=== PATIENT | female | born 1975 | race Caucasian/White ===

== ENCOUNTER → 2018-10-27 17:29 | Emergency (ER) | payer BC ==
[~2018-10-27 17:29] MED LIST: Naproxen TAB* 250 MG PO ONE
--- NOTE | 2018-10-27 19:09 | ED ---
Lower Extremity - HPI Summary HPI Summary: 43-year-old female presents with complaints of left knee pain. States this morning she was walking her dog and slipped in some wet grass falling to the ground. She is uncertain of the exact mechanism of injury. States she was able to walk and bear weight on the knee immediately after the injury however the pain has progressively worsened throughout the day. Denies any numbness or tingling. - History of Current Complaint Chief Complaint: EDExtremityLower Stated Complaint: "TWISTED LEFT KNEE" PER PT Time Seen by Provider: 10/27/18 18:15 Hx Obtained From: Patient Pain Intensity: 5 - Allergies/Home Medications Allergies/Adverse Reactions: Allergies Allergy/AdvReac Type Severity Reaction Status Date / Time No Known Allergies Allergy Verified 10/27/18 17:47 Home Medications: Home Medications NK [No Home Medications Reported] 10/27/18 [History Confirmed 10/27/18] PMH/Surg Hx/FS Hx/Imm Hx Previously Healthy: Yes - Denies significant PMH - Surgical History Surgical History: None Infectious Disease History: No Infectious Disease History: Denies: Traveled Outside the [place] in Last 30 Days - Family History Known Family History: Positive: Non-Contributory - Social History Occupation: Employed Full-time Lives: Alone Alcohol Use: Occasionally Substance Use Type: Reports: None Smoking Status (MU): Current Some Day Smoker Review of Systems Constitutional: Negative Cardiovascular: Negative Respiratory: Negative Gastrointestinal: Negative Genitourinary: Negative Musculoskeletal: Other - See HPI Skin: Negative Neurological: Negative All Other Systems Reviewed And Are Negative: Yes Physical Exam - Summary Physical Exam Summary: GENERAL APPEARANCE: Well developed, well nourished, alert and cooperative, and appears to be in no acute distress. CARDIAC: Normal S1 and S2. No S3, S4 or murmurs. Rhythm is regular. There is no peripheral edema, cyanosis or pallor. Extremities are warm and well perfused. Capillary refill is less than 2 seconds. Peripheral pulses intact. LUNGS: Clear to auscultation without rales, rhonchi, wheezing or diminished breath sounds. ABDOMEN: Positive bowel sounds. Soft, nondistended, nontender. No guarding or rebound. No masses or hepatosplenomegally. MUSKULOSKELETAL: Normal muscular development. Limping gait. EXTREMITIES: Tenderness to the medial aspect of the left knee without ecchymosis , edema, or laxity of the joint. Circulation and sensation intact. SKIN: Skin normal color, texture and turgor with no lesions or eruptions. Triage Information Reviewed: Yes Vital Signs On Initial Exam: Initial Vitals Temp Pulse Resp BP Pulse Ox 99.9 F 94 16 186/104 98 10/27/18 17:45 10/27/18 17:45 10/27/18 17:45 10/27/18 17:45 10/27/18 17:45 Vital Signs Reviewed: Yes Diagnostics - Vital Signs Vital Signs Temp Pulse Resp BP Pulse Ox 10/27/18 17:45 99.9 F 94 16 186/104 98 - Laboratory Lab Statement: Any lab studies that have been ordered have been reviewed, and results considered in the medical decision making process. - Radiology No standard instances Radiology Interpretation Completed By: ED Physician - Negative for fracture or dislocation Lower Extremity Course/Dx - Course Course Of Treatment: 43-year-old female presents with complaints of left knee pain. States this morning she was walking her dog and slipped in some wet grass falling to the ground. She is uncertain of the exact mechanism of injury. States she was able to walk and bear weight on the knee immediately after the injury however the pain has progressively worsened throughout the day. Denies any numbness or tingling. Afebrile. Vital signs stable. Patient had tenderness to the medial aspect of the left knee without ecchymosis, edema, or laxity of the joint. Circulation and sensation intact. X-ray of the knee was negative. Reviewed results with the patient. We will treat her for a left knee sprain. She was placed in a knee immobilizer by the RN. Circulation sensation were intact pre-and post-application. She was provided crutches for progressive weightbearing. Recommending [id number] analgesics and RACE. She is to follow-up orthopedic surgery in 5-7 days for reevaluation. Anticipatory guidance and warning symptoms were reviewed with the patient. Verbalizes understanding and agrees with plan of care. - Diagnoses Differential Diagnosis/HQI/PQRI: Positive: Contusion, Dislocation, Fracture ( Closed), Sprain Provider Diagnoses: Left knee pain Discharge - Sign-Out/Discharge Documenting (check all that apply): Patient Departure Patient Received Moderate/Deep Sedation with Procedure: No - Discharge Plan Condition: Stable Disposition: HOME Patient Education Materials: Crutch Instructions (ED) Referrals: No Primary Care Phys,NOPCP [Primary Care Provider] - Brown Lam MD [Medical Doctor] - 5 Days (Call for an appointment.) Additional Instructions: The x-ray performed in the clinic today showed no evidence of a fracture. I suspect that you sprained the knee. Wear the knee immobilizer for support. Use the crutches to progressively increase the amount of weight you are able to bear. Rest the knee as much as possible. Apply ice to the affected area for 15-20 minutes at least 4 times a day to help with the pain and swelling. Elevate the leg to help reduce swelling. Take acetaminophen (Tylenol) or ibuprofen (Advil, Motrin) according to directions as needed for pain. Follow up with orthopedic surgery in 5-7 days . Call for an appointment. Seek immediate medical attention if you have severe pain not managed with pain medication, you are unable to walk or bear any weight, develop numbness or tingling in the foot or toes, or have any worsening of symptoms. - Billing Disposition and Condition Condition: STABLE Disposition: Home
[2018-10-27 21:04] VITALS: BP 150/104
== END | disposition home or self-care (01) ==
LOC: ED 17:29
DX: M25.562 Pain in left knee (principal); F17.210 Nicotine dependence, cigarettes, uncomplicated
CPT/HCPCS: 99282; A9270-GY

== ENCOUNTER 2019-04-10 05:36 | Emergency (ER) | payer BC ==
--- NOTE | 2019-04-10 07:54 | ED ---
Upper Extremity Pain - HPI Summary HPI Summary: This patient is a 43-year-old female who presents to the ED with right shoulder injury. She states she injured the shoulder on , 5 days ago, while walking her dog. She states the dog pulled the arm and she's been having discomfort in the shoulder since that time. She states she thinks the shoulder is dislocated. Continues to be able to move about the shoulder. Symptoms are worse with movement of the R shoulder to the L side of the body without pain otherwise. At rest, sxs rated 1/10, upon movement 5/10. Endorses radiation of pain to the R upper arm. Taking naproxen for relief. - History of Current Complaint Chief Complaint: EDShoulderCParviz Stated Complaint: SHOULDER PAIN PER PT Time Seen by Provider: 04/10/19 07:16 Hx Obtained From: Patient Onset/Duration: Started Hours Ago Timing: Constant Severity Initially: Mild Severity Currently: Mild Pain Location: Shoulder Character: Sharp Aggravating Factor(s): Movement Alleviating Factor(s): Nothing Associated Signs & Symptoms: Positive: Negative Related History: Dominant Hand Right - Risk Factors Non-Orthopedic Risk Factor: Negative DVT Risk Factors: Negative Septic Arthritis Risk Factor: Negative Compartment Syndrome Risk Factors: Pain - Allergies/Home Medications Allergies/Adverse Reactions: Allergies Allergy/AdvReac Type Severity Reaction Status Date / Time No Known Allergies Allergy Verified 04/10/19 05:39 PMH/Surg Hx/FS Hx/Imm Hx Previously Healthy: Yes Endocrine/Hematology History: Denies: Hx Diabetes Cardiovascular History: Denies: Hx Hypertension, Hx Pacemaker/ICD Respiratory History: Denies: Hx Asthma Sensory History: Denies: Hx Hearing Aid Psychiatric History: Denies: Hx Panic Disorder - Surgical History Surgery Procedure, Year, and Place: WISDOM TEETH - Immunization History Hx Pertussis Vaccination: No Immunizations Up to Date: Yes Infectious Disease History: No Infectious Disease History: Denies: Traveled Outside the [place] in Last 30 Days - Family History Known Family History: Positive: Non-Contributory - Social History Occupation: Employed Full-time Lives: With Family Alcohol Use: Occasionally Hx Substance Use: No Substance Use Type: Reports: None Smoking Status (MU): Former Smoker Review of Systems Negative: Fever, Chills, Fatigue, Skin Diaphoresis Negative: Palpitations, Chest Pain Negative: Shortness Of Breath, Cough Genitourinary: Negative Positive: no symptoms reported, see HPI Positive: Arthralgia - right shoulder pain. Negative: Myalgia Neurological: Negative All Other Systems Reviewed And Are Negative: Yes Physical Exam Triage Information Reviewed: Yes Vital Signs On Initial Exam: Initial Vitals Temp Pulse Resp BP Pulse Ox 99.6 F 117 15 155/115 99 04/10/19 05:38 04/10/19 05:38 04/10/19 05:38 04/10/19 05:38 04/10/19 05:38 Vital Signs Reviewed: Yes Appearance: Positive: Well-Appearing, Well-Nourished Skin: Positive: Warm, Skin Color Reflects Adequate Perfusion Head/Face: Positive: Normal Head/Face Inspection Eyes: Positive: EOMI, JOSE, Conjunctiva Clear Neck: Positive: Supple, No Lymphadenopathy Respiratory/Lung Sounds: Positive: Clear to Auscultation, Breath Sounds Present Cardiovascular: Positive: RRR, Pulses are Symmetrical in both Upper and Lower Extremities Musculoskeletal: Positive: Pain @ - right anterior shoulder pain Neurological: Positive: Alert, Oriented to Person Place, Time Psychiatric: Positive: Affect/Mood Appropriate AVPU Assessment: Alert Procedures - Sedation Patient Received Moderate/Deep Sedation with Procedure: No Diagnostics - Vital Signs Vital Signs Temp Pulse Resp BP Pulse Ox 04/10/19 05:38 99.6 F 117 15 155/115 99 - Laboratory Lab Statement: Any lab studies that have been ordered have been reviewed, and results considered in the medical decision making process. Course/Dx - Course Course Of Treatment: No evidence of right shoulder glenohumeral dislocation. No scapular winging. Patient has pain most notably to the glenohumeral joint/ coracoid process. No pain to the before meals joint. No pain to the clavicle or sternoclavicular joint. Good ROM with flexion and extension, abduction and adduction. Muscle strength 4/5. Empty can, Neer, speeds, yerguson test negative. Pt will be discharged with tendonitis. Ibuprofen encouraged. Heat encouraged. - Diagnoses Differential Diagnosis/HQI/PQRI: Positive: Strain, Sprain Provider Diagnoses: Right shoulder tendinitis Discharge ED - Sign-Out/Discharge Documenting (check all that apply): Patient Departure - Discharge Plan Condition: Stable Disposition: HOME Patient Education Materials: Tendinitis (ED) Forms: *Work Release Referrals: Scott House MD [Medical Doctor] - No Primary Care Phys,NOPCP [Primary Care Provider] - Additional Instructions: Please follow up with ortho as needed IBpurofen 600mg three times daily Ice and heat to the area Note given for work - Billing Disposition and Condition Condition: STABLE Disposition: Home
[2019-04-10 08:04] VITALS: BP 133/82
== END 2019-04-10 08:03 | disposition home or self-care (01) ==
LOC: ED 05:36
DX: M75.91 Shoulder lesion, unspecified, right shoulder (principal); Z87.891 Personal history of nicotine dependence
CPT/HCPCS: 99281